=== PATIENT | female | born 1945 | race Caucasian/White ===

== ENCOUNTER → 2019-12-23 11:41 | Outpatient (CLI) | payer MEDICARE, SELFPAY ==
--- NOTE | 2019-12-23 | DI.MRI.S_ITS ---
PROCEDURE: MR SHOULDER RT WO CON INDICATIONS: BILATERAL SHOULDER PAIN TECHNIQUE: Noncontrast oblique coronal T2 fast spin echo with fat saturation, oblique sagittal T1 spin echo and T2 fast spin echo with fat saturation, axial T1 spin echo and T2 fast spin echo with fat saturation through the shoulder. COMPARISON: None. FINDINGS: Image quality: Diagnostic. Patient motion is noted.. Rotator cuff: Full-thickness rupture of distal supraspinatus and infraspinatus are seen at their insertion on the humeral head with up to 3.4 centimeter medial retraction of torn tendon fibers to the level of acromioclavicular joint. Distal subscapularis tendinosis is seen. Sagittal images demonstrate moderate to severe supraspinatus, and infraspinatus muscle atrophy. Bones and bursae: No bone marrow contusions or fractures. Superior migration of humeral head in relation to glenoid is noted. Moderate osteoarthritic changes are noted in acromioclavicular joint and glenohumeral joint. Capsule and soft tissues: In the absence of intra-articular contrast, there is subtle signal abnormality in superior anterior labrum at 12 to 1 o'clock position. The glenohumeral ligaments appear intact. The long head of the biceps tendinosis is seen.. The rotator interval appears normal, without fibrosis. The coracohumeral ligament is normal in thickness. IMPRESSION: 1. Full-thickness rupture of distal supraspinatus and infraspinatus at their insertion on the humeral head with up to 3.4 cm medial retraction of torn tendon fibers to the level of acromioclavicular joint. Distal subscapularis tendinosis. Moderate to severe supraspinatus and infraspinatus muscle atrophy. 2. Moderate acromioclavicular joint and glenohumeral joint osteoarthritis. Moderate to large amount of joint effusion and subacromial subdeltoid bursal fluid. 3. Suggestion of subtle superior anterior labral tear at 12 to 1 o'clock position. 4. Proximal intra-articular portion of long head of biceps tendinosis. Dictated by: Dionicio Hammer M.D. on 12/23/2019 at 14:10 Approved by: Dionicio Hammer M.D. on 12/23/2019 at 14:18
== END ==
PROVIDERS: Family Provider Internal Medicine Geriatric Medicine; PCP Internal Medicine Geriatric Medicine; Referring Provider Internal Medicine Geriatric Medicine; Visit Provider Orthopaedic Surgery
DX: M25.511 Pain in right shoulder (principal); M75.121 Complete rotator cuff tear or rupture of right shoulder, not specified as traumatic; M19.011 Primary osteoarthritis, right shoulder; M25.512 Pain in left shoulder
CPT/HCPCS: 73221

== ENCOUNTER → 2019-12-27 16:00 | Outpatient (CLI) | payer MEDICARE, SELFPAY ==
--- NOTE | 2019-12-27 | DI.MRI.S_ITS ---
PROCEDURE: MR SHOULDER LT WO CON INDICATIONS: Left shoulder pain TECHNIQUE: Noncontrast oblique coronal T2 fast spin echo with fat saturation, oblique sagittal T1 spin echo and T2 fast spin echo with fat saturation, axial T1 spin echo and T2 fast spin echo with fat saturation through the shoulder. COMPARISON: [facility] [place], CR, XR SHOULDER 2+ VIEWS BILATERAL, 12/06/2019, 10:43. Formerly [facility], MR, MR SHOULDER RT WO CON, 12/23/2019, 12:03. FINDINGS: Image quality: Excellent. Rotator cuff: There is full-thickness tearing of the entire supraspinatus and infraspinatus tendons, which demonstrate medial retraction and atrophy. There is low-grade partial-thickness articular surface tearing of the teres minor at the humeral insertion site. Mild T2 signal elevation throughout the subscapularis at the humeral insertion site, indicating tendinopathy, without tear. Bones and bursae: No bone marrow contusions or fractures. Superior subluxation of the humeral head which abuts the inferior acromion. There is mild subchondral degenerative marrow edema within the posterior glenoid and medial humeral head. Moderate acromioclavicular joint degeneration. The acromion demonstrates conventional anatomy, without an os acromiale. No pathologic subacromial-subdeltoid or subcoracoid bursal fluid is present. Capsule and soft tissues: Diffuse degenerative fraying of the glenoid labrum. The long head of the biceps tendon demonstrates normal location and morphology. The rotator interval appears normal, without fibrosis. The coracohumeral ligament is normal in thickness. IMPRESSION: 1. Full-thickness tearing of the entire supraspinatus and infraspinatus tendons, with medial retraction and atrophy. 2. Subscapularis tendinopathy without tear. 3. Low-grade partial-thickness tearing of the infraspinatus tendon at the humeral insertion site. 4. Degenerative glenoid labral tearing. 5. Acromioclavicular joint osteoarthritis. Dictated by: Kolby Valentin M.D. on 12/28/2019 at 8:34 Approved by: Kolby Valentin M.D. on 12/28/2019 at 8:36
== END ==
PROVIDERS: Family Provider Internal Medicine Geriatric Medicine; PCP Internal Medicine Geriatric Medicine; Referring Provider Orthopaedic Surgery; Visit Provider Orthopaedic Surgery
DX: M25.512 Pain in left shoulder (principal); M25.511 Pain in right shoulder; M75.122 Complete rotator cuff tear or rupture of left shoulder, not specified as traumatic; M19.012 Primary osteoarthritis, left shoulder; S43.492A Other sprain of left shoulder joint, initial encounter
CPT/HCPCS: 73221

== ENCOUNTER → 2020-10-09 13:51 | Outpatient (CLI) | payer MEDICARE, SELFPAY ==
--- NOTE | 2020-10-09 | DI.CT.S_ITS ---
PROCEDURE: CT UE LT WO CON INDICATIONS: Other specific arthropathies, not elsewhere classified, left TECHNIQUE: Noncontrast 1-1.5 mm thick sections acquired from the acromioclavicular joint to the inferior scapula, with coronal and sagittal reformatting. COMPARISON: None. FINDINGS: Image quality: Excellent. Bones: No acute fracture or focal osseous destruction. Diffuse cervical spondylosis. Anatomic alignment. Severe AC joint degeneration. Moderate glenohumeral degenerative joint disease. High-riding appearance of the humeral head in keeping with chronic rotator cuff pathology. There is atrophy of the supraspinatus and infraspinatus muscles. Soft tissues: Visualized lungs grossly unremarkable. IMPRESSION: Left shoulder joint degeneration as above. High-riding appearance of the humeral head in keeping with chronic rotator cuff pathology. Associated atrophy of the supraspinatus and infraspinatus muscles. Dictated by: Nazario Quiroga M.D. on 10/09/2020 at 15:24 Approved by: Nazario Quiroga M.D. on 10/09/2020 at 15:29
== END ==
PROVIDERS: Family Provider Internal Medicine Geriatric Medicine; PCP Internal Medicine Geriatric Medicine; Referring Provider Orthopaedic Surgery; Visit Provider Orthopaedic Surgery
DX: M19.012 Primary osteoarthritis, left shoulder (principal)
CPT/HCPCS: 73200

== ENCOUNTER → 2021-01-10 11:00 | Outpatient (CLI) | payer MEDICARE, SELFPAY ==
[2021-01-10 12:43] LABS: COVID19 -Nasal RAPID Negative (Negative)
== END ==
PROVIDERS: Family Provider Internal Medicine Geriatric Medicine; PCP Internal Medicine Geriatric Medicine; Referring Provider Nurse Practitioner Family; Visit Provider Nurse Practitioner Family
DX: Z20.822 Contact with and (suspected) exposure to COVID-19 (principal)
CPT/HCPCS: 87635; C9803

== ENCOUNTER 2021-01-11 05:53 | Day surgery (SDC) | payer MEDICARE, SELFPAY ==
[2020-12-28 08:36] VITALS: BMI 17.4
[2021-01-11] VITALS (14 sets, daily range): BP systolic 101–134; BP diastolic 52–84; PULSE 58–73; RESP 12–20; TEMP 36.2–36.9; O2SAT 95–100; BMI 19.0
--- NOTE | 2021-01-11 06:28 | DI.RAD.S_ITS ---
PROCEDURE: XR SHOULDER LT MIN 2V INDICATIONS: postop prosthesis placement TECHNIQUE: 2 views of the shoulder were acquired. COMPARISON: None. FINDINGS: Bones: Patient is status post reverse left shoulder arthroplasty with anatomic left shoulder alignment. No fractures or dislocations. No suspicious bony lesions. Visualized ribs appear intact. Soft tissues: Expected postsurgical changes are seen in left shoulder soft tissue. No suspicious soft tissue calcifications. IMPRESSION: Postop changes from reverse left shoulder arthroplasty with anatomic alignment. Dictated by: Dionicio Hammer M.D. on 01/11/2021 at 11:47 Approved by: Dionicio Hammer M.D. on 01/11/2021 at 11:48
[2021-01-11] MEDS: LACTATED RINGERS 1,000 ML 42 ML IV (07:10)
[2021-01-11] MEDS: ACETAMINOPHEN 325 MG TABLET 975 MG PO ×2 (07:11→20:01)
[2021-01-11] MEDS: CELECOXIB 200 MG CAPSULE PO (07:11)
[2021-01-11] MEDS: VANCOMYCIN 1,000 MG/200 ML PIGGYBACK 200 MG IV ×2 (07:31→18:42)
--- NOTE | 2021-01-11 08:07 | SUR.PREOP ---
Addendum entered by Tere Walton R.N. 01/11/21 08:10: see anesthesia paperwork for meds given for sedation/block. Original Note: Block start time [744] . Monitoring initiated and maintained throughout procedure. Time out done by Dr Gutierrez. Oxygen and medications given per anesthesiologist instructions. Patient remained stable throughout procedure, no adverse reactions noted. Block end time [855]. Patient tolerated well. vss. See progress note for print out of vital signs. To OR directly after block completed.
[2021-01-11] MEDS: CEFAZOLIN 1 GM VIAL 2 GM IV (08:15)
[2021-01-11] MEDS: GENTAMICIN 200 MG in SODIUM CHLORIDE 0.9% 100 ML 105 ML IV (08:42)
--- NOTE | 2021-01-11 08:44 | PM.PROC.1 ---
Procedures Date/Time Date of procedure: 01/11/21 Time of procedure: 07:50 Nerve Block Time out performed: Yes Local anesthetic used: other (5mL 0.5% ropivacaine, 5mL 2% lidocaine) Location of anesthetic used: interscalene Amount of anesthesia used (mL): 20 Nerve blocks: brachial plexus (interscalene) Procedure successful: Yes Patient tolerated procedure: well Complications: none Additional comments: Brachial plexus nerve block for post operative pain management. Risks and benefits discussed, including bleeding, infection, intravascular injection, nerve damage, block failure. Standard ASA monitors, NC O2. Pt supine. Chloroprep site preparation, sterile technique. Brachial plexus identified with US guidance, traced from supraclavicular to interscalene. 1mL 2% lidocaine skin wheal. 22g x 50mm Pajunk advanced with in-plane US guidance to brachial plexus. Negative aspiration. LA injected with intermittent negative aspiration. Good LA spread noted on US. No pain, no paraesthesia. Pt tolerated procedure well. Vital signs stable.
[2021-01-11] MEDS: LIDOCAINE 1% W/EPI 20 ML INJ (08:47)
--- NOTE | 2021-01-11 08:51 | SUR.OPER ---
Beach chair with Maquet shoulder positioner. Lower body on padded OR bed. Head in foam padded head cradle, secured with straps. Non-operative arm secured <90 degrees abduction. Pillow under knees. Safety belt at thigh. Cloth tape over blanket over lower legs.
--- NOTE | 2021-01-11 10:16 | PM.OP.1 ---
Operative Date/Time/Diagnoses Date of procedure: 01/11/21 Time of procedure: 10:16 Pre-op diagnosis: Left shoulder rotator cuff arthropathy Post-op diagnosis: same Procedure & Clinicians Procedure: Left reverse total shoulder arthroplasty Same procedure as scheduled: Yes Indications: Left shoulder rotator cuff arthropathy Surgeon: Santo Stuart Regulatory Analyst: Rose Mary Florentino Anesthesia Type: General and Peripheral nerve block Operative Notes Findings: High-riding humeral head. Complete loss supraspinatus infraspinatus and some of teres minor. About 50% of subscapularis still intact. Arthritic changes to the glenohumeral joint as well as signs of wear to the superior aspect of the humeral head. No significant acetabularization of the acromial arch. No significant osteophytes and no significant loose bodies in the glenohumeral joint. Sign of wear and tear to the glenohumeral joint with loss of cartilage on both the glenoid and the humeral head. Closure Type: primary Specimen(s): none sent Applied: implant(s) (Size 7 humeral stem 33+ 4 glenosphere. 24 mm +4 base plate 36+ 6/33 humeral insert) Procedure in detail: On date of service, Patient was met in the holding area. The operative site was signed and witnessed by the OR staff. The surgeries once again discussed with the patient and any remaining questions they had were answered fully. Patient was taken back to the operating theater and placed on the operating table in a supine position. Great care was taken to ensure that all bony prominences were properly padded. Patient was then placed into the beach chair position. The head and neck were properly positioned and secured. A timeout was performed verifying patient's name, procedure, and the operative site. The upper extremity was then prepped and draped in the normal sterile fashion. Previously, the bony anatomy and incision were marked out as well as injected with Marcaine with epinephrine. A deltopectoral approach was performed. 10 blade was used to incise the skin and fascial tissue. A deep knife was used to continue sharp dissection until the cephalic vein was visualized. The cephalic vein was dissected free allowing us to expose the deltopectoral interval. This interval was then developed. A Bradford elevator was used to free up the deltoid of any scarring both superficially as well as deeply. The vein and the deltoid were taken laterally while the pectoralis was taken medially. This gave us good visualization of the strap muscles. The clavipectoral fascia was removed and the strap muscles were then retracted medially with the pectoralis. Patient had a significant high riding humeral head with articulation with the acromial arch. Patient had complete loss of the entire rotator cuff except for subscapularis and teres minor had some partial tearing but some of the tendon was still intact. The entire head was free of any soft tissue attachment. Patient had arthritic changes to the humeral head as well as the glenoid no significant osteophytes present. An intramedullary guide was placed for the humeral cut. The head was removed. In a protective plate was placed to protect the osteotomy site. We then turned our attention to the glenoid. The degenerative anterior and inferior capsular tissue was removed. This was followed by removing the degenerative labral tissue from around the glenoid as well as the biceps insertion. This gave us good visualization of the glenoid. Guide pin was placed in the center of the glenoid. This gave us a good idea of the ventral screw length. Cannulated drill bit was placed over the guidewire and drilled. This was followed by a small Reamer then by the actual Reamer for the glenoid sphere which measured out to be a 33 mm. Copious irrigation was performed after all drilling and reaming. Once the glenoid was reamed the center hole was tapped. A 24 mm base plate was screwed into place. Locking screws were then placed superior and inferiorly as well as anteriorly but not enough good bony stock to put in a posterior screw. We had very good screw lengths for 3 out of the for. Once the base placed was securely fixated to the glenoid the glenoid sphere was impacted into place in the center screw was placed for additional fixation. The area was then copiously irrigated and we turned our attention to the humerus. We Return to our attention back to the humerus. The humerus was then reamed and broached. Trial stem was placed and then reamed for the placement of the cup. Trial liners were trialed as well and the shoulder was reduced and taken through range of motions. The +6 liner provided the most optimal stability. The trial components were removed and the final components were impacted into the humerus. A +3 liner was placed in the shoulders was reduced and taken through range of motion and was felt to be quite stable. The shoulder was copiously irrigated with pulse lavage and a drain was placed. The shoulder was closed in layered fashion and patient was extubated and taken to the PACU in stable condition. Complications: none Post-operative Condition: stable Disposition: Acute Care Plan for aftercare: Patient will be admitted overnight. If comfortable enough patient will go home tomorrow. Patient being a sling for at least 2 weeks. Patient can do some gentle range of motion exercises out of the sling. There was a repair of her subscapularis.
[2021-01-11] MEDS: OXYCODONE IR 5 MG TABLET PO (11:07)
--- NOTE | 2021-01-11 11:36 | PM.PREOP ---
Pre-operative Note Interval Note History & Physical reviewed/Exam performed by Physician: Yes Changes to H&P: No
[2021-01-11] MEDS: LACTATED RINGERS 1,000 ML 125 ML IV ×2 (12:51→21:34)
[2021-01-11] MEDS: CODEINE/ACETAMINOPHEN 30/300 TABLET 2 TAB PO (15:16)
[2021-01-11] MEDS: CODEINE 30 MG TABLET 60 MG PO (15:16)
[2021-01-11] MEDS: CARBIDOPA-LEVODOPA 25/100 TABLET 2 EACH PO ×2 (15:16→20:24)
--- NOTE | 2021-01-11 15:40 | PT.IIE ---
Current Diagnoses Other specific arthropathies, not elsewhere classified, right shoulder (01/11/21) Surgery Performed Operation Date: 01/11/21 07:45 Actual Procedures p Total Shoulder Arthroplasty - Reverse(Left) - Santo Stuart MD Medical History (Last Updated 12/28/20 @ 09:24 by Shannon Sarah RN) Easy bruisability GERD with esophagitis Glaucoma Hiatal hernia Hx of thyroid irradiation Hypothyroidism Kyphoscoliosis Neuropathy Osteoarthritis Parkinson's disease RLS (restless legs syndrome) Tremor of left hand Physical Therapy Inpatient Evaluation/Re-Eval M1 PT/OT-IP Prior Functional Status Start: 01/11/21 17:16 Freq: NEEDED Status: Active Protocol: Document 01/11/21 15:40 AB (Rec: 01/11/21 17:31 AB [id number]) Medical Review Prior Functional Status Medical History Reviewed Yes Communication able to make needs known Mobility and Gait pt stated that she is modified independent with all mobilities and ambulation using SPC but uses a 4WW at night Social History Household Members spouse Living Arrangements House Number of Floors (Floors) One Floor Number of Stairs To Enter/Railing? no steps to enter Home Environment Standard Height Toilet,High Toilet,Walk in Shower Home Equipment Straight Cane,Raised Toilet Seat Without Armrests,Shower Seat without Backrest,Hand Held Shower,Grab Bars Near Toilet,Grab Bars In Shower Additional Social History Comment pt stated that her daughter will also stay with them for ~ 1 week and will be able to assist her M2 PT-IP Current Condition Start: 01/11/21 17:16 Freq: NEEDED Status: Active Protocol: Document 01/11/21 15:40 AB (Rec: 01/11/21 17:31 AB [id number]) Physical Therapy Current Condition Current Condition Evaluation Date 01/11/21 Treatment Diagnosis s/p L TSA reverse; difficulty in walking Onset Date 01/11/21 M3 PT-IP Subjective Start: 01/11/21 17:16 Freq: NEEDED Status: Active Protocol: Document 01/11/21 15:40 AB (Rec: 01/11/21 17:31 AB [id number]) Subjective Physical Therapy Visit Type Type Initial Evaluation Visit Start Time 15:40 Visit Stop Time 16:50 Total Visit Minutes 70 Number of CHAIR TRIMMER Visits 0 Physical Therapy Visit Comments Patient Comments agreeable to do PT Therapy Pain Assessment Pain When Pain Assessed At Rest Pain Present Pain Present Pain Reported Location left shoulder Intensity 8 Scale Used Numeric (0 - 10) Pain Management Techniques Apply Cold,Distraction, Elevation,Modification of Treatment,Re-positioning, Timing of Activity with Medications M4 PT-IP Mobility and Gait Start: 01/11/21 17:16 Freq: NEEDED Status: Active Protocol: Document 01/11/21 15:40 AB (Rec: 01/11/21 17:31 AB [id number]) PT-Bed Mobility Assessment Supine to Sit Supine to Sit Moderate Assistance,1 Person Assistance Sit to Supine Sit to Supine Minimal Assistance PT-Transfer Assessment Sit to and From Stand Sit to and from Stand Moderate Assistance,Maximum Assistance,1 Person Assistance ,Use of Upper Extremities Equipment Transfer Assistive Device Straight Cane Orthotic/Prosthetic Devices or Brace: Yes Transfers Transfer Destination Toilet Transfer Technique ambulated using SPC Transfer Ability Level of Assist Moderate Assistance,1 Person Assistance,Use of Upper Extremities Comments Mobility Comments educated pt on shoulder precautions and sling management. pt completed supine to sit mod A and cues. assisted pt with sling management. pt completed elbow/wrist/hand exercises. don sling back on pt. pt completed sit to stand mod A from EOB using foot board to push from. pt stated that she usually push down on foot board at home. ambulated in room using SPC mod A and cues. pt sat back on EOB. readjusted SPC and educated on SPC use. pt requested to use the toilet. completed sit to stand from EOB x 2 attemps max A and max cues. ambulated to the toilet mod A and cues using SPC. able to complete hygiene care SBA and completed sit to stand from the toilet using grab bar for support CGA . ambulated using SPC back to the bed mod A and cues for techniques. pt completed sit to supine mod A and cues. positioned in bed. call light and table placed within reach . set up caregiver training at 1000am tomorrow. pt will call her spouse. Gait Assessment Gait Gait Assistance Required: Moderate Assistance Distance (Feet) 20 Able to Maintain Weight Bearing Status Yes During Gait Assistive Devices Assistive Device Gait Belt,Straight Cane Orthotic/Prosthetic Devices or Brace: Yes Gait Deviations General Gait Pattern Antalgic,Ataxic,Decreased Stride Length,Decreased Feet Clearance,Flexed Trunk,Lateral Trunk Lean,Step-to Gait Factors Limiting Gait Function Factors Limiting Gait Function Decreased Activity Tolerance, Decreased Strength,Limited Range of Motion,Pain,Poor Balance,Poor Safety Awareness Comments Gait Comments pt has scoliosis and and increase forward trunk posture with increas kyphosis and increase bilateral knee flexion during standing and increase towards end of ambulation and cued for posture. presents with unsteady gait. noted increase L hip IR and with decrease ERIN during standing and walking PT-Balance Assessment Sitting Balance and Reactions Static Sitting Balance Ability Good Dynamic Sitting Balance Ability Good Standing Balance and Reactions Static Standing Balance Ability Fair Dynamic Standing Balance Ability Poor Device Used SPC M5 PT-IP Objective Assessments Start: 01/11/21 17:16 Freq: NEEDED Status: Active Protocol: Document 01/11/21 15:40 AB (Rec: 01/11/21 17:31 AB [id number]) Orientation Orientation/Cognition Level of Alertness Alert Orientation Name,Place,Situation Language Function Ability No Deficits Noted Safety Awareness Decreased Safety Awareness Memory Description No Deficits Noted Gross Range of Motion Lower Extremity ROM Assessment Within Functional Limits Strength Lower Extremity Strength Hip 4-/5 Knee 3+/5 Sensation Assessment Sensation Gross Sensation WNL Muscle Tone Muscle Tone WNL Yes M6 PT-IP Treatment Start: 01/11/21 17:16 Freq: NEEDED Status: Active Protocol: Document 01/11/21 15:40 AB (Rec: 01/11/21 17:31 AB [id number]) Physical Therapy Treatment Exercises Exercises Elbow Flexion/Extension,Wrist ROM,Hand ROM Education Education Provided Precautions,Weight Bearing Status,Post-Op Packet,Safety M7 PT-IP Assessment and Plan Start: 01/11/21 17:16 Freq: NEEDED Status: Active Protocol: Document 01/11/21 15:40 AB (Rec: 01/11/21 17:31 AB [id number]) PT Summary Assessment and Plan Potential Rehabilitation Potential Fair Status of Condition at Evaluation Evolving Summary Impairments Pain,ROM,Strength,Balance, Coordination,Sensation,Tone, Cognition,Bed Mobility, Transfers,Gait,Activity Tolerance Assessment Summary pt requiring mod A with mobility and plans to go home with spouse to assist her. caregiver training set up for tomorrow at 1000 am. will continue to assess progress for safe d/c plan. pt stated that her daughter will also be able to assist her. pt stated that she has outpt PT set up. Goals Bed Mobility Goal Standby Assistance Transfer Goal Standby Assistance,Cane Gait Goal Standby Assistance,Cane Gait Distance 150 Days to Meet Goals 5 Frequency of Treatment Frequency Of Treatment Twice a Day Treatment Plan Physical Therapy Treatment Plan Bed Mobility Training,Transfer Training,Gait Training, Therapeutic Exercise,Balance Retraining,Post Op Education, Discharge Planning,Hot or Cold Pack,Neuromuscular Re-ed, Coordination Retraining,Manual Therapy Precautions Shoulder Precautions Sling,PROM,Internal Rotation to Body,No External Rotation, No Abduction,Forward Flexion to 90 degrees,Pendulums Weight Bearing Status Weight Bearing Status Non-Weight Bearing Allowed Weight Bearing Amount (enter % LUE NWB or #) (%) Recommendations To Nursing Amount of Assist Needed 1 Person Assist Discharge Recommendations PT Discharge Recommendations Home with 16/09 Assist Available,Outpatient PT Transportation Needs at Discharge Private Vehicle
[2021-01-11] MEDS: OXYCODONE IR 10 MG TABLET PO (18:42)
[2021-01-11] MEDS: PRAMIPEXOLE 1 MG TABLET 1.5 MG PO (18:55)
[2021-01-11] MEDS: HYDROMORPHONE 0.5 MG INJ 0.2 MG IV (20:01)
[2021-01-11] MEDS: DOCUSATE 100 MG CAPSULE PO (20:21)
[2021-01-11] MEDS: ASPIRIN EC 81 MG TABLET PO (20:22)
[2021-01-11] MEDS: LATANOPROST 0.005% OPHTH 2.5 ML 1 DROPS EYE-RIGHT (20:23)
[2021-01-11] MEDS: MELATONIN 3 MG TABLET 6 MG PO (20:25)
[2021-01-11] MEDS: SODIUM CHLORIDE 0.9% FLUSH 10 ML IV (20:25)
[2021-01-12] MEDS: OXYCODONE IR 10 MG TABLET PO ×2 (00:08→05:21)
[2021-01-12 01:04] VITALS: BP 124/74; PULSE 60; RESP 17; TEMP 36.2; O2SAT 95
[2021-01-12 04:11] VITALS: BP 133/79; PULSE 62; RESP 14; TEMP 36.9; O2SAT 100
[2021-01-12 05:56] LABS: Hematocrit 32.9 % (36-46); Hemoglobin 11.1 g/dL (12.0-16.0); Mean Corpuscular HGB Conc 33.7 % (30-36); Mean Corpuscular Hemoglobin 30.3 PG (26-34); Mean Corpuscular Volume 89.9 fL (80-100); Platelet Count 236 X10^3/uL (150-400); Red Blood Cell Count 3.66 X10^6/uL (4.0-5.2); Red Cell Distribution Width 13.5 % (11.6-14.8)
[2021-01-12] MEDS: PANTOPRAZOLE DR 20 MG TABLET PO (06:14)
[2021-01-12] MEDS: ACETAMINOPHEN 325 MG TABLET 975 MG PO (06:17)
--- NOTE | 2021-01-12 07:59 | PM.DS.1 ---
History of Present Illness History of Present Illness Date Patient Seen: 01/12/21 Time Patient Seen: 07:59 Chief complaint: Left shoulder pain s/p left reverse TSA Narrative: The patient is complaining of moderate left shoulder pain this morning. She notes she takes Tylenol for on a regular basis preoperatively. She is feeling somewhat better today. Her is available to help Discharge Providers Provider Discharge Date: 01/12/21 Primary care physician: Joycelyn Tavares MD Consults: 01/11/21 10:11 Consult to Discharge Planning Routine Comment: Consult to Physical Therapy Evaluate & Treat Comment: Physician Instructions: Evaluate and Treat Consult to Respiratory Therapy Evaluate & Treat Comment: Physician Instructions: Evaluate and treat Discharge provider: Rose Mary Florentino PA-C Summary Hospital Course Discharge Diagnosis: Left shoulder rotator cuff arthropathy Hospital Course: Date of procedure: 01/11/21 Time of procedure: 10:16 Procedure & Clinicians Procedure: Left reverse total shoulder arthroplasty Same procedure as scheduled: Yes Indications: Left shoulder rotator cuff arthropathy Surgeon: Santo Stuart Phlebotomy Coordinator: Rose Mary Florentino Anesthesia Type: General and Peripheral nerve block Operative Notes Findings: High-riding humeral head.? Complete loss supraspinatus infraspinatus and some of teres minor.? About 50% of subscapularis still intact.? Arthritic changes to the glenohumeral joint as well as signs of wear to the superior aspect of the humeral head.? No significant acetabularization of the acromial arch.? No significant osteophytes and no significant loose bodies in the glenohumeral joint.? Sign of wear and tear to the glenohumeral joint with loss of cartilage on both the glenoid and the humeral head. Closure Type: primary Specimen(s): none sent Applied: implant(s) (Size 7 humeral stem 33+ 4 glenosphere.? 24 mm +4 base plate? 36+ 6/33 humeral insert) Status at Discharge Cognitive/behavioral status at discharge: oriented Functional status at discharge: uses cane/walker Overall status at discharge: patient is progressing back to baseline Exam Vital Signs (past 8 hours): - 01/12/21 01:04 01/12/21 04:11 Temperature 97.1 F L 98.5 F Pulse Rate 60 62 Respiratory Rate 17 14 Blood Pressure 124/74 133/79 Pulse Oximetry 95 100 Oxygen Delivery Method Room Air Oxygen Flow Rate 0 Narrative Exam Narrative: Pleasant 75-year-old female, resting comfortably in bed, no acute distress. Dressing has some scant bloody drainage on the proximal aspect, otherwise clean dry intact. No surrounding erythema or induration. Bilateral upper extremity motor function is grossly intact. Sensation is mildly decreased on left side as compared to the right. Sling is in place. Objective Labs Result Diagrams: 01/12/21 05:25 Labs: Laboratory Results - last 24 hr 01/12/21 05:25 WBC 8.0 RBC 3.66 L Hgb 11.1 L Hct 32.9 L MCV 89.9 MCH 30.3 MCHC 33.7 RDW 13.5 Plt Count 236 PFSH Medical History Easy bruisability GERD with esophagitis Glaucoma Hiatal hernia Hx of thyroid irradiation Hypothyroidism Kyphoscoliosis Neuropathy Osteoarthritis Parkinson's disease RLS (restless legs syndrome) Tremor of left hand Surgical History History of carpal tunnel surgery of left wrist History of hysterectomy History of repair of hiatal hernia History of surgery History of surgery History of total left knee replacement (09/17/10) Hx of bilateral cataract extraction Hx of foot surgery (2011) Hx of laminectomy Hx of tonsillectomy Social History household members: spouse Smoking Status: Never smoker alcohol intake: former Discharge Assessment & Plan Assessment and Plan Assessment: Stable status post left reverse total shoulder arthroplasty Plan of Treatment: -gentle [id number] exercises with PT. Otherwise patient will be in a sling for 2 weeks -continue with current pain regimen, encourage stronger pain medications for the patient other than her Tylenol No. 4 -discontinue Hemovac after physical therapy session 1. -possible DC home today if cleared by PT and pain is controlled Discharge Plan Discharge Plan Patient Disposition: Home Discharge orders & Medications Discharge Orders: Discharge (Order); Ordered 01/12/21 Ordered By: Rose Mary Florentino Prescriptions: New acetaminophen 500 mg capsule 500 mg PO Q4H MDD Max 3000 mg per day PRN (Reason: pain (scale score 1-3)) Qty: 90 0RF aspirin 81 mg Tablet,Delayed Release (Dr/Ec) 81 mg PO BID 42 Days Qty: 84 0RF docusate sodium 100 mg Capsule 100 mg PO BID PRN (Reason: Constipation from narcotic pain meds) Qty: 30 0RF oxycodone 10 mg Tablet 10 mg PO Q3HR PRN (Reason: Pain, Severe (7-10)) Qty: 42 0RF Continued meloxicam 15 mg Tablet 15 mg PO DAILY Qty: 0 0RF levothyroxine 125 mcg Tablet 125 mcg PO DAILY Qty: 0 0RF omeprazole 20 mg Capsule,Delayed Release(Dr/Ec) 20 mg PO DAILY Qty: 0 0RF latanoprost 0.005 % Drops 1 drp EYE-RIGHT BEDTIME 0RF carbidopa-levodopa 25-100 mg Tablet 2 tab PO TID 0RF Label Comments: 0500, 1100, 1700 melatonin 5 mg Tablet 10 mg PO BEDTIME 0RF pramipexole 1 mg Tablet 1.5 mg PO BEDTIME 0RF Discontinued acetaminophen-codeine 300-60 mg Tablet 2 tab PO Q6H Qty: 0 0RF Follow up/Referrals: Joycelyn Tavares MD [Primary Care Provider] - Santo Stuart MD [Physician] - (10-14 days for postoperative visit) Diet/Activity/Treatments Diet: Diet as Tolerated and Regular Activity: Patient being a sling for at least 2 weeks. Patient can do some gentle range of motion exercises out of the sling. There was a repair of her subscapularis. Cold/Heat Therapy: Use ice as needed for pain Skin/Wound/Dressing Care Report to your healthcare provider any signs of infection, such as:: chills, fever, night sweats, unusual drainage and unusual redness Dressing: Keep dressing in place until follow-up with Dr. Stuart. Okay to shower. Visit Report/Discharge Packet Instructions: DI for Shoulder Replacement Stand Alone Forms: Surgery Discharge Discharge Data Primary Care Provider: Joycelyn Tavares Attending Provider: Santo Stuart Quality VTE Deep Vein Thrombosis/Pulmonary Embolism Present on Admission: No
[2021-01-12 08:00] VITALS: BP 129/80; PULSE 60; RESP 18; TEMP 37.2; O2SAT 96
[2021-01-12] MEDS: CODEINE 30 MG TABLET 60 MG PO (09:51)
[2021-01-12] MEDS: ASPIRIN EC 81 MG TABLET PO (09:52)
[2021-01-12] MEDS: CARBIDOPA-LEVODOPA 25/100 TABLET 2 EACH PO (09:52)
[2021-01-12] MEDS: CODEINE/ACETAMINOPHEN 30/300 TABLET 2 TAB PO (09:52)
[2021-01-12] MEDS: SODIUM CHLORIDE 0.9% FLUSH 10 ML IV (09:53)
[2021-01-12] MEDS: DOCUSATE 100 MG CAPSULE PO (09:53)
[2021-01-12] MEDS: LEVOTHYROXINE 125 MCG TABLET PO (09:53)
--- NOTE | 2021-01-12 10:22 | PT.IPTN ---
Current Diagnoses Other specific arthropathies, not elsewhere classified, right shoulder (01/11/21) Surgery Performed Operation Date: 01/11/21 07:45 Actual Procedures p Total Shoulder Arthroplasty - Reverse(Left) - Santo Stuart MD Physical Therapy Treatment Note M2 PT-IP Current Condition Start: 01/11/21 17:16 Freq: NEEDED Status: Active Protocol: Document 01/11/21 15:40 AB (Rec: 01/11/21 17:31 AB [id number]) Physical Therapy Current Condition Current Condition Evaluation Date 01/11/21 Treatment Diagnosis s/p L TSA reverse; difficulty in walking Onset Date 01/11/21 M3 PT-IP Subjective Start: 01/11/21 17:16 Freq: NEEDED Status: Active Protocol: Document 01/12/21 10:22 AB (Rec: 01/12/21 12:16 AB [id number]) Subjective Physical Therapy Visit Type Type Treatment Note Visit Start Time 10:22 Visit Stop Time 10:50 Total Visit Minutes 28 Number of [employer]ICER Visits 0 Physical Therapy Visit Comments Patient Comments pt is agreeable to do PT; spouse in room for training M4 PT-IP Mobility and Gait Start: 01/11/21 17:16 Freq: NEEDED Status: Active Protocol: Document 01/12/21 10:22 AB (Rec: 01/12/21 12:16 AB [id number]) PT-Transfer Assessment Sit to and From Stand Sit to and from Stand Standby Assistance,Contact Guard Assistance,1 Person Assistance,Use of Upper Extremities Equipment Transfer Assistive Device Gait Belt,Straight Cane Orthotic/Prosthetic Devices or Brace: Yes Transfers Transfer Destination Bedside Commode Transfer Technique Stand Step Pivot Transfer Ability Level of Assist Standby Assistance,1 Person Assistance,Use of Upper Extremities Comments Mobility Comments pt sitting on EOB and want to use bedside commode. completed sit to stand using bed rail to push from SBA and step transfer to bedside commode SBA to CGA. pt completed hygiene care and brief management SBA. pt transferred back to bed step transfer SBA to CGA. caregiver training conducted. educated spouse on pt's L sholder precautions. educated on sling management, HEP, use of safety belt and how to assist pt . spouse was able to put sling and safety belt on pt. assisted pt with sit to stand and was able to assist pt with ambulation in room using SPC. pt sat back on EOB. educated pt and spouse regarding dressing techniques. pt and spouse understood. Call light and table placed next to pt. informed nurse regarding pt's mobility. Gait Assessment Gait Gait Assistance Required: Contact Guard Assist Distance (Feet) 30 Able to Maintain Weight Bearing Status Yes During Gait Assistive Devices Assistive Device Gait Belt,Straight Cane Orthotic/Prosthetic Devices or Brace: Yes Gait Deviations General Gait Pattern Antalgic,Decreased Stride Length,Decreased Feet Clearance,Flexed Trunk,Lateral Trunk Lean Factors Limiting Gait Function Factors Limiting Gait Function Decreased Activity Tolerance, Decreased Strength,Limited Range of Motion,Pain,Poor Balance,Poor Safety Awareness Comments Gait Comments pls refer to mobility section for details M5 PT-IP Objective Assessments Start: 01/11/21 17:16 Freq: NEEDED Status: Active Protocol: Document 01/11/21 15:40 AB (Rec: 01/11/21 17:31 AB [id number]) Orientation Orientation/Cognition Level of Alertness Alert Orientation Name,Place,Situation Language Function Ability No Deficits Noted Safety Awareness Decreased Safety Awareness Memory Description No Deficits Noted Gross Range of Motion Lower Extremity ROM Assessment Within Functional Limits Strength Lower Extremity Strength Hip 4-/5 Knee 3+/5 Sensation Assessment Sensation Gross Sensation WNL Muscle Tone Muscle Tone WNL Yes M6 PT-IP Treatment Start: 01/11/21 17:16 Freq: NEEDED Status: Active Protocol: Document 01/12/21 10:22 AB (Rec: 01/12/21 12:16 AB [email or web address]) Physical Therapy Treatment Education Education Provided Precautions,Safety Brace Education [place],Patient, Caregiver M7 PT-IP Assessment and Plan Start: 01/11/21 17:16 Freq: NEEDED Status: Active Protocol: Document 01/12/21 10:22 AB (Rec: 01/12/21 12:16 AB [id number]) PT Summary Assessment and Plan Potential Rehabilitation Potential Good Summary Impairments Pain,ROM,Strength,Balance, Coordination,Sensation,Tone, Cognition,Bed Mobility, Transfers,Gait,Activity Tolerance Progress Towards Goals Slow Progress due to Medical Issues Assessment Summary caregiver training conducted and spouse was able to assist pt safely. pt may go home when medically stable. Goals Bed Mobility Goal Standby Assistance Transfer Goal Standby Assistance,Cane Gait Goal Standby Assistance,Cane Gait Distance 150 Days to Meet Goals 5 Frequency of Treatment Frequency Of Treatment Twice a Day Treatment Plan Physical Therapy Treatment Plan Bed Mobility Training,Transfer Training,Gait Training, Therapeutic Exercise,Balance Retraining,Post Op Education, Discharge Planning,Hot or Cold Pack,Neuromuscular Re-ed, Coordination Retraining,Manual Therapy Precautions Shoulder Precautions Sling,PROM,Internal Rotation to Body,No External Rotation, No Abduction,Forward Flexion to 90 degrees,Pendulums Weight Bearing Status Weight Bearing Status Non-Weight Bearing Allowed Weight Bearing Amount (enter % LUE NWB or #) (%) Recommendations To Nursing Amount of Assist Needed 1 Person Assist Discharge Recommendations PT Discharge Recommendations Home with 16/09 Assist Available,Outpatient PT Transportation Needs at Discharge Private Vehicle
--- NOTE | 2021-01-12 12:55 | PC.NURSE ---
Discharge instructions given to pt and spouse. Pt verbalized all instructions. IV removed, Drain removed. drsgs applied. Escorted out via w/c with all personal belongings in stable condition.
== END 2021-01-12 12:30 | disposition home or self-care (01) ==
LOC: OR 05:55 → AC 05:55
PROVIDERS: Family Provider Internal Medicine Geriatric Medicine; PCP Internal Medicine Geriatric Medicine; Referring Provider Orthopaedic Surgery; Visit Provider Orthopaedic Surgery
PROC: (CPT 23472; principal; 2021-01-11 07:45)
DX: M12.811 Other specific arthropathies, not elsewhere classified, right shoulder (principal); K21.9 Gastro-esophageal reflux disease without esophagitis; G20 Parkinson's disease
CPT/HCPCS: 23472; 36415; 64450; 73030; 85027; 97162; 97530; C1776; J0330; J0690; J1100; J1170; J2250; J2405; J2704; J3010

== ENCOUNTER → 2021-06-25 08:40 | Outpatient (CLI) | payer MEDICARE, SELFPAY ==
[2021-01-11 12:40] VITALS: BMI 19.0
--- NOTE | 2021-06-25 | DI.MRI.S_ITS ---
PROCEDURE: MR SHOULDER LT W CON INDICATIONS: LEFT SHOULDER ROTATOR CUFF TEAR TECHNIQUE: After the administration of 12 mL of dilute intra-articular Gadolinium contrast, oblique coronal T1 and T2 spin echo with fat saturation, oblique sagittal T1 spin echo with and without fat saturation, oblique sagittal T2 fast spin echo with fat saturation, axial T1 spin echo with fat saturation through the shoulder. COMPARISON: [facility], , [place] SHOULDER INJECTION MR/CT LT, 06/25/2021, 9:18. FINDINGS: Image quality: Limited. Significant susceptibility artifacts and motion artifacts are noted limits evaluation. Rotator cuff: Moderate to severe supraspinatus muscle atrophy is seen on sagittal images. There is also suggestion of moderate infraspinatus and teres minor muscle atrophy atrophy. No definite full-thickness rotator cuff tendon rupture is seen . No definite contrast is seen in subacromial subdeltoid bursa. Bones and bursae: Postsurgical changes from prior reverse shoulder arthroplasty is seen with susceptibility artifacts. No gross marrow edema. No acute fracture or dislocation. Moderate acromioclavicular joint osteoarthritic changes are seen with joint space narrowing and downward osteophyte formation. Capsule and soft tissues: The long head of the biceps tendon is not well visualized due to significant artifacts in this area. The rotator interval appears normal, without fibrosis. No definite intra-articular bodies. IMPRESSION: 1. Limited study due to significant susceptibility artifacts and motion artifacts. 2. No definite full-thickness rotator cuff tendon rupture. Significant rotator cuff muscle atrophy as above. 3. Nonvisualization of proximal intra-articular portion of biceps tendon which may represent postsurgical changes suggest clinical correlation. 4. Moderate acromioclavicular joint osteoarthritis. No gross acute fracture or dislocation. Dictated by: Dionicio Hammer M.D. on 06/25/2021 at 14:50 Approved by: Dionicio Hammer M.D. on 06/25/2021 at 14:55
--- NOTE | 2021-06-25 | DI.RAD.S_ITS ---
PROCEDURE: [place] SHOULDER INJECTION MR/CT LT INDICATIONS: LEFT SHOULDER ROTATOR CUFF TEAR COMPARISON: [facility] [place], [place], XR SHOULDER 2+ VIEWS LEFT, 06/05/2021, 11:20. [facility] [place], [place], XR SHOULDER 2+ VIEWS LEFT, 03/15/2021, 9:02. TECHNIQUE: The indications, alternatives, benefits, risks, and complications of the procedure were explained to the patient. Written informed consent was obtained and placed in the chart. The shoulder was examined fluoroscopically and a site for needle placement chosen for entry into the glenohumeral joint from an anterior approach. The skin was prepped and draped in a sterile fashion, and 1% lidocaine infiltrated from skin down to joint capsule. A spinal needle was inserted into the glenohumeral joint, and a small amount of iodinated contrast media injected to confirm intra-articular placement of the needle tip. This was followed by approximately 12 mL dilute solution of a gadolinium containing MR contrast agent. The needle was removed and a dressing was applied. The patient was given postprocedural instructions and sent to the MR suite for MR imaging. FINDINGS: A single fluoroscopic spot image demonstrates intra-articular location of injected iodinated contrast. IMPRESSION: Successful fluoroscopically guided administration of dilute Gadolinium solution into the shoulder joint for MR arthrogram. Dictated by: Dillan Mathew M.D. on 06/25/2021 at 10:27 Approved by: Dillan Mathew M.D. on 06/25/2021 at 10:28
== END ==
PROVIDERS: Family Provider Internal Medicine Geriatric Medicine; PCP Internal Medicine Geriatric Medicine; Referring Provider Orthopaedic Surgery; Visit Provider Orthopaedic Surgery
DX: M75.102 Unspecified rotator cuff tear or rupture of left shoulder, not specified as traumatic (principal); M19.012 Primary osteoarthritis, left shoulder
CPT/HCPCS: 23350; 73222; 77002